=== PATIENT | female | born 1960 | race Caucasian/White ===

== ENCOUNTER 2017-09-01 07:38 | Day surgery (SDC) | payer BC ==
[~2017-09-01] VITALS: Ht 154.9 cm; Wt 61.0 kg
[~2017-09-01 07:38] MED LIST: ESSENTIAL WOMA1 EAC1 PO; JUNEL FE 1.5-31 EACH; LOESTRIN 241 TABLET; NOHOMEMEDS
[2017-09-01 08:01] VITALS: BP 126/56
[2017-09-01] MEDS ORDERED: IBUPROFEN800 MG PO (09:45)
[2017-09-01] MEDS ORDERED: PERCOCET 5/31 TABLET PO (09:45)
[2017-09-01 10:25] VITALS: BP 118/58
[2017-09-01 11:38] VITALS: BP 124/75
== END 2017-09-01 11:38 | disposition home or self-care (01) ==
LOC: SDC 07:38
PROC: 0UBC7ZX Excision of Cervix, Via Natural or Artificial Opening, Diagnostic (ICD-10-PCS; principal; 2017-09-01)
DX: D06.9 Carcinoma in situ of cervix, unspecified (principal); M06.9 Rheumatoid arthritis, unspecified
CPT/HCPCS: 88307; 88341 TC; 88342 TC; J0690; J1100; J1885; J2405; J3010; Q0175